=== PATIENT | male | born 1985 | race Caucasian/White ===

== ENCOUNTER 2018-08-26 16:47 | Emergency (ER) | payer BC, SELFPAY ==
[~2018-08-26] VITALS: Ht 180.3 cm; Wt 109.1 kg
[2018-08-26] MEDS ORDERED: ASPIRIN 325 MG TAB PO ONE (17:15)
[2018-08-26 17:25] LABS: BASO % 0.3 % (0.0-1.0); EOS % 0.4 % (0.0-3.0); HEMATOCRIT 44.4 % (42.0-52.0); LYMPH # 2.6 10^3/uL (1.5-4.5); LYMPH % 35.9 % (24.0-44.0); MEAN CORPUSCULAR HEMOGLOBIN 29.6 pg (27.0-33.0); MEAN CORPUSCULAR HGB CONC 33.8 g/dl (32.0-36.5); MEAN CORPUSCULAR VOLUME 87.6 fl (80.0-96.0); MONO # 0.6 10^3/uL (0.0-0.8); NEUTROPHILS % 55.1 % (36.0-66.0); PLATELET COUNT, AUTOMATED 307 10^3/uL (150-450); RED BLOOD COUNT 5.07 10^6/uL (4.30-6.10); WHITE BLOOD COUNT 7.3 10^3/uL (4.0-10.0)
[2018-08-26 17:37] LABS: APPEARANCE, URINE CLEAR (CLEAR); BACTERIA, URINE AUTO NEGATIVE (NEGATIVE); BILIRUBIN, URINE AUTO NEGATIVE (NEGATIVE); BLOOD, URINE BLOOD NEGATIVE (NEGATIVE); COLOR, URINE YELLOW (YELLOW); GLUCOSE, URINE (UA) AUTO NEGATIVE (NEGATIVE); KETONE, URINE AUTO NEGATIVE (NEGATIVE); LEUKOCYTE ESTERASE, URINE AUTO NEGATIVE (NEGATIVE); MUCUS, URINE SMALL (NEGATIVE); NITRITE, URINE AUTO NEGATIVE (NEGATIVE); PROTEIN, URINE AUTO NEGATIVE (NEGATIVE); RBC, URINE AUTO 1 /HPF (0-3); SPECIFIC GRAVITY URINE AUTO 1.023 (1.002-1.035); SQUAMOUS EPITHELIAL CELL UR AU 0 /HPF (0-6); WBC, URINE AUTO 1 /HPF (0-3)
[2018-08-26 17:39] LABS: INR 0.99; PROTHROMBIN TIME 13.2 SECONDS (12.1-14.4)
[2018-08-26 17:40] LABS: PARTIAL THROMBOPLASTIN TIME 27.8 SECONDS (25.4-37.6)
[2018-08-26 17:42] LABS: D-DIMER QUANT 414.98 ng/ml (<500)
[2018-08-26 17:49] LABS: BLOOD UREA NITROGEN 14 MG/DL (7-18); CALCIUM LEVEL 8.4 MG/DL (8.5-10.1); CARBON DIOXIDE LEVEL 27 MEQ/L (21-32); CHLORIDE LEVEL 108 MEQ/L (98-107); CPK CREATINE PHOSPHOKINASE 174 U/L (39-308); GLOMERULAR FILTRATION RATE > 60.0 (>60); GLUCOSE, FASTING 98 MG/DL (70-100); MB/CK RELATIVE INDEX 0.69 (< OR =4); POTASSIUM SERUM 3.7 MEQ/L (3.5-5.1); SODIUM LEVEL 143 MEQ/L (136-145); TROPONIN I < 0.02 NG/ML (< 0.10)
--- NOTE | 2018-08-26 17:49 | REP ---
Clinical: Acute chest pain . Comparison: 07/11/2016 . Technique: PA and lateral. Findings: The mediastinum and cardiac silhouette are normal. The lung colin are clear and without acute consolidation, effusion, or pneumothorax. The skeletal structures are intact and normal. Impression: 1. No acute cardiopulmonary process. Electronically Signed by Ramírez Cortez MD 08/26/2018 05:40 P
[2018-08-26] MEDS ORDERED: ALBUTEROL 90 MCG/ACT 8GM HFA INHALER INH ONE ×2 (18:45→20:00)
[2018-08-26 20:04] VITALS: BP 142/86
--- NOTE | 2018-08-28 09:04 | ECGEPIP ---
Stationary ECG Study [facility] - ED Test Date: 2018-08-26 Pat Name: ENDA FIGUEROA Department: Room: - Gender: M Clinical Team Lead: : 1985 Requested By: Michael Joyner Order Number: [id number] Reading MD: Akua Walsh Measurements Intervals [place] Rate: 76 P: -1 [place]: 148 QRS: 8 QRSD: 106 T: 6 QT: 370 QTc: 416 Interpretive Statements SINUS RHYTHM NO PRIOR FOR COMPARISON Electronically Signed On 08-28-2018 9:04:24 EST by Akua Walsh
== END 2018-08-26 20:30 | disposition home or self-care (01) ==
LOC: M ED 16:47
DX: J98.01 Acute bronchospasm (principal); R07.89 Other chest pain; Z87.891 Personal history of nicotine dependence

== ENCOUNTER → 2018-10-13 | Outpatient (CLI) | payer OTHER, SELFPAY ==
--- NOTE | 2018-10-13 14:55 | REP ---
LEFT RIBS WITHOUT PA CHEST: 10/13/2018 COMPARISON: Left shoulder, 05/15/2008. CLINICAL HISTORY: Left-sided rib pain. Fell in a hole at work. FINDINGS: Five views are provided. There is a nondisplaced fracture of the left lateral 7th rib seen on two of the five views. Some lateral pleural thickening adjacent. There is no effusion or pneumothorax. No other visible rib fracture or focal rib lesion. Clavicle and AC joint are intact. Glenohumeral joint intact, and exostosis along the proximal medial shaft of the humerus is similar to that seen on the shoulder x-ray 10 years ago. This represents a benign bone process. IMPRESSION: 1. Nondisplaced fracture left lateral 7th rib without effusion, pneumothorax, or other acute finding. Electronically Signed by Mayco Lopez MD 10/13/2018 07:52 P
--- NOTE | 2018-10-13 14:59 | REP ---
RIGHT KNEE, COMPLETE: 10/13/2018. CLINICAL HISTORY: Trauma, fell in a hole work. FINDINGS: Five views provided. Lateral view suggests there may be a small suprapatellar effusion. I do not see patellar subluxation, dislocation, or fracture. There is no narrowing of the medial or lateral compartments, loose body, osteochondral defect, or focal bone lesion. The proximal tibial-fibular articulation is normal. On the oblique view only, there is a tiny curvilinear ossific density adjacent to the lateral femoral condyle that could be a small avulsion, perhaps at the lateral collateral ligamentous origin. IMPRESSION: 1. Small suprapatellar joint effusion suggested on the lateral view without joint space narrowing, patellar subluxation, dislocation, or fracture and without narrowing of the medial or lateral compartments nor loose body. 2. Question of an avulsion off the lateral margin of the lateral femoral condyle, perhaps at the lateral collateral ligamentous insertion. Is there tenderness along the lateral femoral condyle more superiorly? Electronically Signed by Mayco Lopez MD 10/13/2018 07:52 P
== END ==
LOC: M LRY 13:44
PROVIDERS: ATTEND Physician Assistant
DX: S89.91XA Unspecified injury of right lower leg, initial encounter (principal); M25.461 Effusion, right knee; S22.32XA Fracture of one rib, left side, initial encounter for closed fracture; Y92.9 Unspecified place or not applicable; Y93.9 Activity, unspecified; Y99.9 Unspecified external cause status; X58.XXXA Exposure to other specified factors, initial encounter

== ENCOUNTER 2020-05-04 09:59 | Emergency (ER) | payer OTHER, SELFPAY ==
[~2020-05-04] VITALS: Ht 180.3 cm; Wt 115.7 kg
[2020-05-04] MEDS ORDERED: AUGM875T28 PO (10:44)
[2020-05-04 11:01] VITALS: BP 141/93
== END 2020-05-04 11:03 | disposition home or self-care (01) ==
LOC: M ED 09:59
DX: K04.7 Periapical abscess without sinus (principal)

== ENCOUNTER → 2020-08-10 | Outpatient (CLI) | payer SELFPAY ==
[~2020-08-10] MED LIST: AUGM875T28 PO
== END ==
LOC: M LABSMTC 10:18
PROVIDERS: ATTEND Pediatrics
DX: Z20.822 Contact with and (suspected) exposure to COVID-19 (principal)